=== PATIENT | male | born 1980 | race Caucasian/White ===

== ENCOUNTER 2018-02-14 14:20 | Emergency (ER) | payer MEDICAID, OTHER ==
[~2018-02-14] VITALS: Ht 180.3 cm; Wt 103.0 kg
[~2018-02-14 14:20] MED LIST: ALBU8.5H4 IH; CEPH500C5 PO; HYDR-3564 PO; HYDR-569 PO; IBUP-1984 PO
[2018-02-14 14:31] VITALS: BP 122/96
[2018-02-14] MEDS ORDERED: ketorolac trometh inj. 60 MG/2 ML VIAL IM ONE (14:50)
[2018-02-14] MEDS ORDERED: diazepam 5mg tablet PO ONE (14:50)
[2018-02-14] MEDS ORDERED: IBUP-1985 PO (15:19)
== END 2018-02-14 15:25 ==
LOC: EEVIPCON 14:20 → ER 14:20
DX: S80.01XA Contusion of right knee, initial encounter (principal); M54.5 Low back pain; F12.10 Cannabis abuse, uncomplicated; F14.10 Cocaine abuse, uncomplicated; F11.10 Opioid abuse, uncomplicated; Z86.14 Personal history of Methicillin resistant Staphylococcus aureus infection; Z98.890 Other specified postprocedural states; Z88.5 Allergy status to narcotic agent; Z79.899 Other long term (current) drug therapy; W18.39XA Other fall on same level, initial encounter; Y93.89 Activity, other specified; Y92.89 Other specified places as the place of occurrence of the external cause; Y99.8 Other external cause status
CPT/HCPCS: 29505; 72100; 73564; 96372; 99284; J1885

== ENCOUNTER 2019-06-22 05:11 | Inpatient (IN) | payer MEDICAID, OTHER ==
[~2019-06-22] VITALS: Ht 182.9 cm; Wt 100.0 kg
[~2019-06-22 05:11] MED LIST changes: -CEPH500C5 PO; -HYDR-3564 PO; +HYDR-3565 PO; +HYDR-4383 PO; -HYDR-569 PO; +IBUP-1985 PO
[2019-06-22] MEDS ORDERED: CLINDAMYCIN/D5W 900mg/50ml 50 ML IV ONE (05:35)
[2019-06-22 06:07] LABS: MEAN PLATELET VOLUME 8.5 FL (7.4-10.4)
[2019-06-22 06:10] LABS: BASOPHILS % (AUTO) 0.3 % (0-1); EOSINOPHILS # (AUTO) 0.1 X10'3 (0-0.9); EOSINOPHILS % (AUTO) 0.9 % (0-6); HEMATOCRIT 44.4 % (42.0-52.0); LYMPHOCYTES # (AUTO) 1.4 X10'3 (1.1-4.8); LYMPHOCYTES % (AUTO) 13.7 % (21-51); MEAN CORPUSCULAR HEMOGLOBIN 28.8 PG (27.0-31.0); MEAN CORPUSCULAR HGB CONC 33.7 g/dL (33.0-36.5); MEAN CORPUSCULAR VOLUME 85.3 FL (78-98); MONOCYTES # (AUTO) 0.7 X10'3 (0-0.9); MONOCYTES % (AUTO) 6.3 % (2-12); NEUTROPHILS # (AUTO) 8.3 X10'3 (1.8-7.7); NEUTROPHILS % (AUTO) 78.8 % (42-75); PLATELET COUNT 211 X10'3 (140-440); WHITE BLOOD COUNT 10.5 X10'3 (4.5-11.0)
[2019-06-22 06:32] LABS: ALANINE AMINOTRANSFERASE 23 U/L (12-78); ALBUMIN/GLOBULIN RATIO 1.1 (1.1-1.5); ALKALINE PHOSPHATASE 75 IU/L (46-116); ANION GAP 11 (8-16); ASPARTATE AMINO TRANSFERASE 10 U/L (10-37); BILIRUBIN,TOTAL 0.9 MG/DL (0.1-1.0); BLOOD UREA NITROGEN 22 MG/DL (7-18); BUN/CREATININE RATIO 15.2 (5.4-32.0); CALCIUM 8.8 MG/DL (8.5-10.1); CHLORIDE 104 MMOL/L (99-107); CREATININE 1.45 MG/DL (0.60-1.10); GLUCOSE 100 MG/DL (70-104); POTASSIUM 3.6 MMOL/L (3.5-5.1); SODIUM 141 MMOL/L (135-145); TOTAL CARBON DIOXIDE 26.1 MMOL/L (24-32); TOTAL PROTEIN 7.6 G/DL (6.4-8.2); eGFR 54 ML/MIN
[2019-06-22 06:58] LABS: PLATELET ESTIMATE NORMAL; TOTAL CELLS COUNTED 100
[2019-06-22] MEDS ORDERED: vancomycin/NS 1 GM ADD-VANTAGE 250 ML IV ONE (07:55)
[2019-06-22] MEDS ORDERED: normal saline 1000ML IV soln IV ONE (07:55)
[2019-06-22] MEDS ORDERED: LORazepam 1 MG tablet PO ONE (08:00)
[2019-06-22] MEDS ORDERED: levetiracetam 250mg tablet PO ONE (08:00)
[2019-06-22] MEDS: normal saline 1000ml 1,000 ML IV SCH ×2 (08:03→14:40)
[2019-06-22] MEDS ORDERED: potassium Cl 20 mEq SR tablet PO PRN ×2 (08:05)
[2019-06-22] MEDS ORDERED: acetaminophen 325mg tablet PO PRN (08:05)
[2019-06-22] MEDS ORDERED: potassium CL 10mEq/100ml bag 100 ML IV PRN ×2 (08:05)
[2019-06-22] MEDS ORDERED: magnesium Cl slow-release 64mg tablet PO PRN (08:05)
[2019-06-22] MEDS ORDERED: magnesium 2GM in 50ml NS 50 ML IV PRN (08:05)
[2019-06-22] MEDS ORDERED: ondansetron/PF 4mg/2ml inj IV PRN (08:05)
[2019-06-22] MEDS ORDERED: magnesium 4gm in 100ml NS 100 ML IV PRN (08:05)
[2019-06-22 08:25] LABS: ETHANOL < 0.010 GM/DL (0.0-0.010)
--- NOTE | 2019-06-22 10:00 | NUR ---
Patient on the unit. Photos taken of wounds.
[2019-06-22 10:23] VITALS: BP 144/92
[2019-06-22 12:21] VITALS: BP 133/90
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
[2019-06-22] MEDS ORDERED: DIVA500T2 PO (15:26)
--- NOTE | 2019-06-22 18:18 | NUR ---
Problems reprioritized. Patient report given, questions answered & plan of care reviewed with Joi RAMOS.
[2019-06-22 20:00] VITALS: BP 144/91
[2019-06-22] MEDS ORDERED: vancomycin/NS 1 GM ADD-VANTAGE 250 ML IV SCH (20:00)
[2019-06-22] MEDS: HYDROmorphone inj. 0.5 MG/0.5 ML DISP.SYRIN IV PRN (20:06)
[2019-06-22] MEDS: VANCOmycin 1250MG/NS 250ml Bag 250 ML IV SCH (20:06)
[2019-06-23] VITALS: BP 126/89
[2019-06-23] MEDS: normal saline 1000ml 1,000 ML IV SCH ×2 (03:11→13:31)
[2019-06-23] MEDS: HYDROmorphone inj. 0.5 MG/0.5 ML DISP.SYRIN IV PRN ×2 (03:11→18:55)
[2019-06-23 05:02] LABS: URINE AMPHETAMINE SCREEN POSITIVE (Neg); URINE BARBITUATE SCREEN NEGATIVE (Neg); URINE BENZODIAZEPINES SCREEN NEGATIVE (Neg); URINE CANNABINOID SCREEN POSITIVE (Neg); URINE COCAINE SCREEN NEGATIVE (Neg); URINE METHADONE SCREEN NEGATIVE (Neg); URINE OPIATE SCREEN NEGATIVE (Neg); URINE PHENCYCLIDINE SCREEN NEGATIVE (Neg)
[2019-06-23 05:14] LABS: ALBUMIN 2.9 G/DL (3.4-5.0); ANION GAP 7 (8-16); BLOOD UREA NITROGEN 20 MG/DL (7-18); BUN/CREATININE RATIO 19.6 (5.4-32.0); CALCIUM 8.4 MG/DL (8.5-10.1); CHLORIDE 109 MMOL/L (99-107); CREATININE 1.02 MG/DL (0.60-1.10); GLUCOSE 105 MG/DL (70-104); MAGNESIUM 1.9 MG/DL (1.5-2.4); SODIUM 142 MMOL/L (135-145); TOTAL CARBON DIOXIDE 25.7 MMOL/L (24-32); eGFR 81 ML/MIN
[2019-06-23 05:16] LABS: POTASSIUM 4.2 MMOL/L (3.5-5.1)
[2019-06-23 05:17] LABS: BASOPHILS % (AUTO) 0.4 % (0-1); EOSINOPHILS # (AUTO) 0.1 X10'3 (0-0.9); EOSINOPHILS % (AUTO) 1.6 % (0-6); HEMATOCRIT 40.3 % (42.0-52.0); HEMOGLOBIN 13.5 g/dl (14.0-17.9); LYMPHOCYTES # (AUTO) 1.2 X10'3 (1.1-4.8); LYMPHOCYTES % (AUTO) 19.5 % (21-51); MEAN CORPUSCULAR HEMOGLOBIN 28.9 PG (27.0-31.0); MEAN CORPUSCULAR HGB CONC 33.4 g/dL (33.0-36.5); MEAN CORPUSCULAR VOLUME 86.5 FL (78-98); MONOCYTES # (AUTO) 0.4 X10'3 (0-0.9); MONOCYTES % (AUTO) 7.2 % (2-12); NEUTROPHILS # (AUTO) 4.3 X10'3 (1.8-7.7); NEUTROPHILS % (AUTO) 71.3 % (42-75); PLATELET COUNT 167 X10'3 (140-440); RED BLOOD COUNT 4.67 X10'6 (4.70-6.10)
--- NOTE | 2019-06-23 06:11 | NUR ---
Patient in room EARLINE 341. I have received report from Joi RAMOS and had the opportunity to ask questions and assume patient care.
--- NOTE | 2019-06-23 06:17 | NUR ---
Problems reprioritized. Patient report given, questions answered & plan of care reviewed with RICHARD Snider.
[2019-06-23 08:00] VITALS: BP 138/86
[2019-06-23] MEDS: K and/or MAG REPLACEMENT MC SCH (08:07)
[2019-06-23] MEDS: VANCOmycin 1250MG/NS 250ml Bag 250 ML IV SCH ×2 (08:15→21:14)
--- NOTE | 2019-06-23 09:17 | NUR ---
Sent page to Dr. Hollins for [place] order for pain. Patient doesn't want to use Dilaudid anymore.
[2019-06-23] MEDS: HYDROcodone/acetaminophen 5mg/325mg tablet PO PRN ×2 (09:44→20:26)
[2019-06-23] MEDS ORDERED: pneumococcal 23-VAL P-sac vacc 25 mcg/0.5ml vial IMVAC ONE (10:00)
[2019-06-23 12:01] VITALS: BP 137/88
[2019-06-23 20:00] VITALS: BP 147/86
[2019-06-23] MEDS: lactobacillus rhamnosus 10,000 MMU CELLS/CAPSULE PO SCH (21:13)
[2019-06-23] MEDS: divalproex sodium 500mg tablet.DR PO SCH (21:14)
[2019-06-24] VITALS: BP 122/75
[2019-06-24] MEDS: normal saline 1000ml 1,000 ML IV SCH ×2 (04:46→10:03)
--- NOTE | 2019-06-24 06:22 | NUR ---
Problems reprioritized. Patient report given, questions answered & plan of care reviewed with RICHARD Snider.
[2019-06-24] MEDS: K and/or MAG REPLACEMENT MC SCH (08:00)
[2019-06-24] MEDS: VANCOmycin 1250MG/NS 250ml Bag 250 ML IV SCH (08:28)
[2019-06-24] MEDS: divalproex sodium 500mg tablet.DR PO SCH ×2 (08:29→21:06)
[2019-06-24] MEDS: lactobacillus rhamnosus 10,000 MMU CELLS/CAPSULE PO SCH ×2 (08:29→21:06)
[2019-06-24] MEDS: HYDROcodone/acetaminophen 5mg/325mg tablet PO PRN ×3 (08:29→21:11)
[2019-06-24] MEDS ORDERED: VANCOMYCIN LEVEL IV ONE (08:30)
[2019-06-24 08:57] VITALS: BP 121/74
[2019-06-24 08:57] LABS: BASOPHILS % (AUTO) 0.4 % (0-1); EOSINOPHILS # (AUTO) 0.1 X10'3 (0-0.9); HEMATOCRIT 42.7 % (42.0-52.0); HEMOGLOBIN 14.3 g/dl (14.0-17.9); LYMPHOCYTES # (AUTO) 1.1 X10'3 (1.1-4.8); LYMPHOCYTES % (AUTO) 18.3 % (21-51); MEAN CORPUSCULAR HEMOGLOBIN 28.4 PG (27.0-31.0); MEAN CORPUSCULAR HGB CONC 33.5 g/dL (33.0-36.5); MEAN CORPUSCULAR VOLUME 84.8 FL (78-98); MEAN PLATELET VOLUME 8.5 FL (7.4-10.4); MONOCYTES # (AUTO) 0.4 X10'3 (0-0.9); MONOCYTES % (AUTO) 6.7 % (2-12); NEUTROPHILS # (AUTO) 4.5 X10'3 (1.8-7.7); NEUTROPHILS % (AUTO) 72.6 % (42-75); PLATELET COUNT 175 X10'3 (140-440); RED BLOOD COUNT 5.04 X10'6 (4.70-6.10); RED CELL DISTRIBUTION WIDTH 13.7 % (11.5-14.5); WHITE BLOOD COUNT 6.2 X10'3 (4.5-11.0)
[2019-06-24 09:12] LABS: ALBUMIN 3.1 G/DL (3.4-5.0); ANION GAP 9 (8-16); BLOOD UREA NITROGEN 12 MG/DL (7-18); BUN/CREATININE RATIO 11.5 (5.4-32.0); CALCIUM 8.6 MG/DL (8.5-10.1); CHLORIDE 106 MMOL/L (99-107); CREATININE 1.04 MG/DL (0.60-1.10); GLUCOSE 84 MG/DL (70-104); POTASSIUM 4.4 MMOL/L (3.5-5.1); SODIUM 140 MMOL/L (135-145); TOTAL CARBON DIOXIDE 24.6 MMOL/L (24-32); VANCOMYCIN,TROUGH 8.8 UG/ML (6.0-14.0); eGFR 80 ML/MIN
[2019-06-24 11:28] VITALS: BP 131/86
--- NOTE | 2019-06-24 13:03 | NUR ---
WOUND INFECTION EDUCATION PROVIDED BY WOUND CARE 1. Patient instructed to call their primary doctor, or go the ED immediately if any of the following symptoms occur: * Increased pain in wound * Increase in drainage from the wound * Redness in the skin surrounding the wound * Warmth in the skin surrounding the wound * Bleeding from the wound * Temperature of 101 or greater 2. If any of these occur while in the hospital tell a nurse immediately. Addendum: 06/24/19 at 1303 by Franc Ang RN Amended: Links added.
[2019-06-24] MEDS ORDERED: VANCOmycin 1250MG/NS 250ml Bag 250 ML IV SCH (16:00)
[2019-06-24] MEDS: cephalexin 500mg capsule PO SCH (17:36)
--- NOTE | 2019-06-24 19:00 | NUR ---
IV infiltrated; patient refusing new IV. No IV medication orders. Patient PO intake good.
[2019-06-24 20:00] VITALS: BP 129/81
[2019-06-24] MEDS ORDERED: famotidine 20mg tablet PO SCH (21:00)
[2019-06-25 00:03] VITALS: BP 149/77
[2019-06-25] MEDS: cephalexin 500mg capsule PO SCH ×2 (00:38→07:20)
[2019-06-25 05:12] LABS: BASOPHILS % (AUTO) 0.5 % (0-1); EOSINOPHILS # (AUTO) 0.1 X10'3 (0-0.9); EOSINOPHILS % (AUTO) 2.7 % (0-6); HEMATOCRIT 45.1 % (42.0-52.0); HEMOGLOBIN 15.2 g/dl (14.0-17.9); LYMPHOCYTES # (AUTO) 1.8 X10'3 (1.1-4.8); LYMPHOCYTES % (AUTO) 32.5 % (21-51); MEAN CORPUSCULAR HEMOGLOBIN 28.6 PG (27.0-31.0); MEAN CORPUSCULAR HGB CONC 33.7 g/dL (33.0-36.5); MEAN CORPUSCULAR VOLUME 84.7 FL (78-98); MEAN PLATELET VOLUME 8.2 FL (7.4-10.4); MONOCYTES # (AUTO) 0.4 X10'3 (0-0.9); MONOCYTES % (AUTO) 7.8 % (2-12); NEUTROPHILS # (AUTO) 3.1 X10'3 (1.8-7.7); NEUTROPHILS % (AUTO) 56.5 % (42-75); PLATELET COUNT 191 X10'3 (140-440); RED BLOOD COUNT 5.33 X10'6 (4.70-6.10); RED CELL DISTRIBUTION WIDTH 13.9 % (11.5-14.5); WHITE BLOOD COUNT 5.4 X10'3 (4.5-11.0)
[2019-06-25 05:29] LABS: ALBUMIN 3.3 G/DL (3.4-5.0); ANION GAP 11 (8-16); BLOOD UREA NITROGEN 14 MG/DL (7-18); BUN/CREATININE RATIO 14.1 (5.4-32.0); CALCIUM 8.8 MG/DL (8.5-10.1); CHLORIDE 104 MMOL/L (99-107); CREATININE 0.99 MG/DL (0.60-1.10); GLUCOSE 90 MG/DL (70-104); POTASSIUM 4.2 MMOL/L (3.5-5.1); SODIUM 141 MMOL/L (135-145); TOTAL CARBON DIOXIDE 26.4 MMOL/L (24-32); eGFR 84 ML/MIN
--- NOTE | 2019-06-25 06:48 | NUR ---
Problems reprioritized. Patient report given, questions answered & plan of care reviewed with RICHARD Malone.
--- NOTE | 2019-06-25 06:54 | NUR ---
Patient in room EARLINE 351. I have received report from ANUSHA Costa RN and had the opportunity to ask questions and assume patient care.
[2019-06-25 07:00] VITALS: BP 120/82
[2019-06-25] MEDS: divalproex sodium 500mg tablet.DR PO SCH (07:20)
[2019-06-25] MEDS: HYDROcodone/acetaminophen 5mg/325mg tablet PO PRN ×2 (07:21→11:46)
[2019-06-25] MEDS: lactobacillus rhamnosus 10,000 MMU CELLS/CAPSULE PO SCH (07:21)
[2019-06-25] MEDS: K and/or MAG REPLACEMENT MC SCH (08:00)
[2019-06-25 11:00] VITALS: BP 124/82
[2019-06-25] MEDS ORDERED: LINE600T12 PO (13:15)
[2019-06-25] MEDS ORDERED: LACT1CAP26 PO (13:15)
[2019-06-25] MEDS ORDERED: FAMO20TA8 PO (13:15)
[2019-06-25] MEDS ORDERED: VANCOMYCIN LEVEL IV ONE (15:30)
--- NOTE | 2019-06-25 15:56 | NUR ---
patient appears to be stable for discharge. wound care done and patient instructed on self wound care. Also encouraged to call wound clinic . Number given, wound supplies provided. patient walked out of facility, refused cab or bus. this staff received a phone call from patients friend 'Mary Ann" who stated that she was here to mushroom picker patient, who had already been escorted to entrance of hospital. She stated that she would still mushroom picker patient . patient DC in stable condition.
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
== END 2019-06-25 15:55 | disposition home or self-care (01) | DRG 383 ==
LOC: ER 05:12 → SUR 3N 09:24 → CMPBEDREQ 06-23 19:57 → SUR 3N 06-24 13:53
PROVIDERS: ADMIT Internal Medicine; ATTEND Family Medicine
PROC: 3E0234Z Introduction of Serum, Toxoid and Vaccine into Muscle, Percutaneous Approach (ICD-10-PCS; principal; 2019-06-23)
DX: L03.115 Cellulitis of right lower limb (principal); G92 Toxic encephalopathy; S81.811A Laceration without foreign body, right lower leg, initial encounter; G40.909 Epilepsy, unspecified, not intractable, without status epilepticus; F17.200 Nicotine dependence, unspecified, uncomplicated; F11.90 Opioid use, unspecified, uncomplicated; F12.90 Cannabis use, unspecified, uncomplicated; Z60.2 Problems related to living alone; W45.8XXA Other foreign body or object entering through skin, initial encounter; Y93.01 Activity, walking, marching and hiking; B95.62 Methicillin resistant Staphylococcus aureus infection as the cause of diseases classified elsewhere; F14.90 Cocaine use, unspecified, uncomplicated; F41.9 Anxiety disorder, unspecified; Z59.0 Homelessness; Z87.820 Personal history of traumatic brain injury; Z91.14 Patient's other noncompliance with medication regimen; Z23 Encounter for immunization; Y92.828 Other wilderness area as the place of occurrence of the external cause; Y99.8 Other external cause status; Z88.5 Allergy status to narcotic agent; Z71.6 Tobacco abuse counseling; Z71.51 Drug abuse counseling and surveillance of drug abuser
CPT/HCPCS: 36415; 73590; 80048; 80053; 80202; 80305; 80320; 83605; 83735; 84145; 85025; 87040; 87070; 87075; 87077; 87081; 87186; 90732; 96365; 99285; G0378; J1170; J3370; J3490; J7030

== ENCOUNTER 2020-07-02 03:03 | Emergency (ER) | payer MEDICAID ==
[~2020-07-02] VITALS: Ht 182.9 cm; Wt 127.3 kg
[~2020-07-02 03:03] MED LIST changes: +DIVA500T2 PO; +FAMO20TA8 PO; -HYDR-3565 PO; -HYDR-4383 PO; -IBUP-1984 PO; +LACT1CAP26 PO
--- NOTE | 2020-07-02 03:06 | NUR ---
pt laced in chair in ambulance bay for triage and evaluation dr arellano notified.
[2020-07-02 04:20] LABS: CLARITY,URINE SLIGHTLY CLOUDY (Clear); COLOR,URINE YELLOW (Yellow); GLUCOSE, URINE NEGATIVE (Neg); KETONES,URINE NEGATIVE (Neg); LEUKOCYTE ESTERASE ,URINE NEGATIVE (Neg); NITRITES, URINE NEGATIVE (Neg); OCCULT BLOOD,URINE NEGATIVE (Neg); PROTEIN,URINE NEGATIVE (Neg); UA COLLECTION TYPE CLN CATCH MIDSTREAM; UROBILINOGEN,URINE 0.2 E.U/dL (0.2-1.0)
[2020-07-02 04:25] LABS: BACTERIA,URINE NONE SEEN /HPF (Neg); RBC,URINE NONE SEEN /HPF (0-2); WBC,URINE NONE SEEN /HPF (0-4)
[2020-07-02 04:26] LABS: CAL OXALATE CRYSTALS 3+ /HPF (NEGATIVE); MUCUS STRANDS FEW /LPF (Neg); SQUAMOUS EPITHELIAL CELL,UR FEW /LPF (FEW)
[2020-07-02] MEDS ORDERED: ibuprofen tablet 400 MG TABLET PO ONE (04:30)
[2020-07-02 04:48] VITALS: BP 135/96
== END 2020-07-02 04:52 | disposition home or self-care (01) ==
LOC: ER 03:03
DX: J06.9 Acute upper respiratory infection, unspecified (principal); M54.89 Other dorsalgia; R06.02 Shortness of breath; R05 Cough; Z20.828 Contact with and (suspected) exposure to other viral communicable diseases; F41.9 Anxiety disorder, unspecified; F17.200 Nicotine dependence, unspecified, uncomplicated; F12.90 Cannabis use, unspecified, uncomplicated; F15.90 Other stimulant use, unspecified, uncomplicated; F14.90 Cocaine use, unspecified, uncomplicated; F11.90 Opioid use, unspecified, uncomplicated; Z86.69 Personal history of other diseases of the nervous system and sense organs; Z86.14 Personal history of Methicillin resistant Staphylococcus aureus infection; Z72.89 Other problems related to lifestyle; Z98.890 Other specified postprocedural states; Z60.2 Problems related to living alone; Z59.0 Homelessness; Z88.5 Allergy status to narcotic agent; Z79.899 Other long term (current) drug therapy
CPT/HCPCS: 36415; 71045; 81001; 87635; 93005; 99285

== ENCOUNTER 2020-09-22 07:28 | Emergency (ER) | payer MEDICAID, OTHER ==
[~2020-09-22] VITALS: Ht 182.9 cm; Wt 127.3 kg
[2020-09-22] MEDS ORDERED: CEPH250T PO (09:03)
[2020-09-22] MEDS ORDERED: AMOX-422 PO (09:03)
[2020-09-22] MEDS ORDERED: ALBU8HFA PO (09:03)
[2020-09-22 09:37] VITALS: BP 159/106
== END 2020-09-22 09:39 | disposition home or self-care (01) ==
LOC: ER 07:28
DX: L03.115 Cellulitis of right lower limb (principal); J45.909 Unspecified asthma, uncomplicated; F41.9 Anxiety disorder, unspecified; F19.90 Other psychoactive substance use, unspecified, uncomplicated; F12.90 Cannabis use, unspecified, uncomplicated; F15.90 Other stimulant use, unspecified, uncomplicated; F14.90 Cocaine use, unspecified, uncomplicated; F11.90 Opioid use, unspecified, uncomplicated; Z86.69 Personal history of other diseases of the nervous system and sense organs; Z86.14 Personal history of Methicillin resistant Staphylococcus aureus infection; Z98.890 Other specified postprocedural states; Z60.2 Problems related to living alone; Z59.0 Homelessness; Z88.5 Allergy status to narcotic agent; Z79.2 Long term (current) use of antibiotics; Z79.899 Other long term (current) drug therapy
CPT/HCPCS: 99283

== ENCOUNTER 2022-04-13 13:23 | Inpatient (IN) | payer OTHER ==
[~2022-04-13] VITALS: Ht 182.9 cm; Wt 102.0 kg
[2022-04-13 14:18] LABS: BASOPHILS % (AUTO) 0.2 % (0-1); EOSINOPHILS % (AUTO) 0.2 % (0-6); HEMOGLOBIN 15.2 g/dl (14.0-17.9); LYMPHOCYTES # (AUTO) 0.9 X10'3 (1.1-4.8); LYMPHOCYTES % (AUTO) 8.7 % (21-51); MEAN CORPUSCULAR HEMOGLOBIN 27.7 PG (27.0-31.0); MEAN CORPUSCULAR HGB CONC 33.7 g/dL (33.0-36.5); MEAN CORPUSCULAR VOLUME 82.2 FL (78-98); MEAN PLATELET VOLUME 9.1 FL (7.4-10.4); MONOCYTES # (AUTO) 0.8 X10'3 (0-0.9); MONOCYTES % (AUTO) 7.8 % (2-12); NEUTROPHILS # (AUTO) 8.6 X10'3 (1.8-7.7); NEUTROPHILS % (AUTO) 83.1 % (42-75); PLATELET COUNT 252 X10'3 (140-440); RED BLOOD COUNT 5.47 X10'6 (4.70-6.10); RED CELL DISTRIBUTION WIDTH 13.7 % (11.5-14.5); WHITE BLOOD COUNT 10.3 X10'3 (4.5-11.0)
[2022-04-13 14:27] LABS: APTT 29 SECONDS (22-32)
[2022-04-13 14:29] LABS: ALANINE AMINOTRANSFERASE 29 U/L (12-78); ALBUMIN 4.1 G/DL (3.4-5.0); ALKALINE PHOSPHATASE 77 IU/L (46-116); ANION GAP 11 (8-16); ASPARTATE AMINO TRANSFERASE 19 U/L (10-37); BILIRUBIN,TOTAL 1.2 MG/DL (0.1-1.0); BLOOD UREA NITROGEN 16 MG/DL (7-18); BUN/CREATININE RATIO 15.4 (5.4-32.0); CALCIUM 9.1 MG/DL (8.5-10.1); CHLORIDE 102 MMOL/L (99-107); CREATININE 1.04 MG/DL (0.60-1.10); GLUCOSE 104 MG/DL (70-104); POTASSIUM 3.7 MMOL/L (3.5-5.1); SODIUM 140 MMOL/L (135-145); TOTAL PROTEIN 8.2 G/DL (6.4-8.2); eGFR 78 ML/MIN
[2022-04-13] MEDS ORDERED: penicillin V potassium 500mg tablet PO ONE (15:15)
[2022-04-13 16:33] LABS: URINE AMPHETAMINE SCREEN POSITIVE (Neg); URINE BARBITUATE SCREEN NEGATIVE (Neg); URINE BENZODIAZEPINES SCREEN NEGATIVE (Neg); URINE CANNABINOID SCREEN POSITIVE (Neg); URINE COCAINE SCREEN NEGATIVE (Neg); URINE METHADONE SCREEN NEGATIVE (Neg); URINE OPIATE SCREEN NEGATIVE (Neg); URINE PHENCYCLIDINE SCREEN NEGATIVE (Neg)
[2022-04-13] MEDS ORDERED: NO HOME MEDS (16:43)
[2022-04-13] MEDS ORDERED: HYDROcodone/acetaminophen 10/325mg tab PO ONE (17:25)
[2022-04-13] MEDS ORDERED: magnesium 2GM in 50ml NS 50 ML IV PRN (17:45)
[2022-04-13] MEDS ORDERED: magnesium Cl slow-release 64mg tablet PO PRN (17:45)
[2022-04-13] MEDS ORDERED: magnesium hydroxide 30ml (MOM) UD suspension PO PRN (17:45)
[2022-04-13] MEDS ORDERED: POTASSIUM BICARB 20meq eff tab 20 MEQ TABLET.EFF PO PRN ×2 (17:45)
[2022-04-13] MEDS ORDERED: acetaminophen 325mg tablet PO PRN (17:45)
[2022-04-13] MEDS ORDERED: ondansetron/PF 4mg/2ml inj IV PRN (17:45)
[2022-04-13] MEDS ORDERED: mag hydrox/Alum hydrox/simeth 30ml oral suspension PO PRN (17:45)
[2022-04-13] MEDS ORDERED: magnesium 4gm in 100ml NS 100 ML IV PRN (17:45)
[2022-04-13] MEDS ORDERED: potassium CL 10mEq/100ml bag 100 ML IV PRN (17:45)
[2022-04-13] MEDS ORDERED: normal saline 1000ml 1,000 ML IV SCH (17:45)
[2022-04-13 18:07] LABS: CHOL/HDL RATIO 3.9 (0.00-4.99); CHOLESTEROL 183 MG/DL (0-200); HDL CHOLESTEROL 47 MG/DL (35-60); LDL CHOLESTEROL 112 MG/DL (50-100); MAGNESIUM 2.1 MG/DL (1.5-2.4); TRIGLYCERIDES 60 MG/DL (20-135)
[2022-04-13] MEDS: ceFAZolin/D5W- 1GM premix 50 ML IV SCH (19:54)
[2022-04-13] MEDS: K and/or MAG REPLACEMENT MC SCH (20:10)
[2022-04-13] MEDS: heparin, porcine 5000 units/ml vial SQ SCH (20:25)
[2022-04-13] MEDS: docusate sod 100mg capsule PO SCH (20:28)
--- NOTE | 2022-04-13 22:05 | NUR ---
Pt arrived from ER via gurney to room 4021a, pt appeared drowsy but able to transfer self to bed without assist. Patients clothing very dirty as well as pt.
[2022-04-13 22:15] VITALS: BP 162/98
[2022-04-14] MEDS: HYDROcodone/acetaminophen 10/325mg tab PO PRN ×2 (02:22→08:22)
[2022-04-14 02:33] VITALS: BP 145/92
[2022-04-14 06:47] LABS: BASOPHILS % (AUTO) 0.2 % (0-1); EOSINOPHILS % (AUTO) 0.1 % (0-6); HEMATOCRIT 43.5 % (42.0-52.0); HEMOGLOBIN 14.6 g/dl (14.0-17.9); LYMPHOCYTES # (AUTO) 0.9 X10'3 (1.1-4.8); LYMPHOCYTES % (AUTO) 12.3 % (21-51); MEAN CORPUSCULAR HEMOGLOBIN 27.9 PG (27.0-31.0); MEAN CORPUSCULAR HGB CONC 33.6 g/dL (33.0-36.5); MEAN CORPUSCULAR VOLUME 82.9 FL (78-98); MEAN PLATELET VOLUME 8.7 FL (7.4-10.4); MONOCYTES # (AUTO) 0.7 X10'3 (0-0.9); MONOCYTES % (AUTO) 10.1 % (2-12); NEUTROPHILS # (AUTO) 5.6 X10'3 (1.8-7.7); NEUTROPHILS % (AUTO) 77.3 % (42-75); PLATELET COUNT 209 X10'3 (140-440); RED BLOOD COUNT 5.25 X10'6 (4.70-6.10); RED CELL DISTRIBUTION WIDTH 14.1 % (11.5-14.5); WHITE BLOOD COUNT 7.2 X10'3 (4.5-11.0)
--- NOTE | 2022-04-14 06:57 | NUR ---
Report to Licha RAMOS.
--- NOTE | 2022-04-14 07:01 | NUR ---
Patient in room ORTHO 4021. I have received report from RICHARD Redmond and had the opportunity to ask questions and assume patient care.
[2022-04-14 07:02] LABS: ALBUMIN 3.5 G/DL (3.4-5.0); ANION GAP 13 (8-16); BLOOD UREA NITROGEN 11 MG/DL (7-18); CALCIUM 8.6 MG/DL (8.5-10.1); CHLORIDE 104 MMOL/L (99-107); CREATININE 0.92 MG/DL (0.60-1.10); GLUCOSE 110 MG/DL (70-104); MAGNESIUM 2.1 MG/DL (1.5-2.4); POTASSIUM 3.6 MMOL/L (3.5-5.1); SODIUM 142 MMOL/L (135-145); eGFR 90 ML/MIN
[2022-04-14] MEDS ORDERED: atorvastatin 10mg tablet PO SCH (08:00)
[2022-04-14] MEDS: K and/or MAG REPLACEMENT MC SCH (08:00)
[2022-04-14] MEDS ORDERED: aspirin 81mg, enteric-coated 1 TAB TABLET.DR PO SCH (08:00)
[2022-04-14] MEDS: docusate sod 100mg capsule PO SCH (08:00)
[2022-04-14] MEDS: heparin, porcine 5000 units/ml vial SQ SCH (08:22)
[2022-04-14] MEDS: ceFAZolin/D5W- 1GM premix 50 ML IV SCH (08:22)
[2022-04-14 10:00] VITALS: BP 148/92
--- NOTE | 2022-04-14 10:48 | NUR ---
Patient decided to leave AMA. Educated on risks of leaving AMA but he states "I have to leave now".
--- NOTE | 2022-04-14 10:53 | NUR ---
PAGER ID: [phone] MESSAGE: [phone] RE: Freeman Lewis room 4021A left AMA. Patient stated he had to go now couldn't wait
--- NOTE | 2022-04-14 11:19 | NUR ---
Patient left AMA at 1045. PIV with intact cannula and tele monitor were removed. Patient states he is going [place] the [place] to try to find fentanyl.
== END 2022-04-14 10:45 | disposition left against medical advice (07) | DRG 65 ==
LOC: ER 13:23 → ED HOLD 17:48 → ORTHO 4S 22:05
PROVIDERS: ADMIT Family Medicine; ATTEND Family Medicine
DX: I63.9 Cerebral infarction, unspecified (principal); L03.211 Cellulitis of face; F15.10 Other stimulant abuse, uncomplicated; F17.210 Nicotine dependence, cigarettes, uncomplicated; Z60.2 Problems related to living alone; I48.91 Unspecified atrial fibrillation; R29.702 NIHSS score 2; K04.7 Periapical abscess without sinus; Z53.29 Procedure and treatment not carried out because of patient's decision for other reasons; F12.90 Cannabis use, unspecified, uncomplicated; F14.90 Cocaine use, unspecified, uncomplicated; F41.9 Anxiety disorder, unspecified; Z59.00 Homelessness unspecified; Z88.5 Allergy status to narcotic agent; Z79.82 Long term (current) use of aspirin; Z71.51 Drug abuse counseling and surveillance of drug abuser; Z71.6 Tobacco abuse counseling
CPT/HCPCS: 36415; 70450; 71045; 80048; 80053; 80061; 80305; 83735; 84484; 85025; 85610; 85730; 87081; 92508; 92616; 93306; 93880; 97116; 97161; 97530; 99285; G0378; J0690; J1644; J7030

== ENCOUNTER 2024-03-09 13:23 | Emergency (ER) | payer MEDICAID ==
[~2024-03-09] VITALS: Ht 182.9 cm; Wt 115.0 kg
[~2024-03-09 13:23] MED LIST changes: -ALBU8.5H4 IH; -DIVA500T2 PO; -FAMO20TA8 PO; -IBUP-1985 PO; -LACT1CAP26 PO; +NO HOME MEDS
[2024-03-09 13:47] VITALS: BP 124/89; PULSE 95; RESP 16; TEMP 97.1; O2SAT 98
[2024-03-09 15:23] LABS: APTT 27 SECONDS (22-32); BASOPHILS % (AUTO) 0.3 % (0-1); EOSINOPHILS % (AUTO) 0.6 % (0-6); HEMATOCRIT 43.2 % (42.0-52.0); HEMOGLOBIN 14.9 g/dl (14.0-17.9); LYMPHOCYTES % (AUTO) 17.7 % (21-51); MEAN CORPUSCULAR HEMOGLOBIN 28.3 PG (27.0-31.0); MEAN CORPUSCULAR HGB CONC 34.4 g/dL (33.0-36.5); MEAN CORPUSCULAR VOLUME 82.1 FL (78-98); MONOCYTES # (AUTO) 0.8 X10'3 (0-0.9); MONOCYTES % (AUTO) 13.6 % (2-12); NEUTROPHILS # (AUTO) 3.8 X10'3 (1.8-7.7); NEUTROPHILS % (AUTO) 67.8 % (42-75); PLATELET COUNT 198 X10'3 (140-440); PROTHROMBIN TIME 10.9 SECONDS (9.0-12.0); RED BLOOD COUNT 5.26 X10'6 (4.70-6.10); RED CELL DISTRIBUTION WIDTH 15.2 % (11.5-14.5); WHITE BLOOD COUNT 5.5 X10'3 (4.5-11.0)
[2024-03-09 15:35] LABS: ALANINE AMINOTRANSFERASE 25 U/L (12-78); ALBUMIN 2.9 G/DL (3.4-5.0); ALBUMIN/GLOBULIN RATIO 0.8 (1.1-1.5); ALKALINE PHOSPHATASE 55 IU/L (46-116); ANION GAP 8 (8-16); ASPARTATE AMINO TRANSFERASE 36 U/L (10-37); BILIRUBIN,TOTAL 0.6 MG/DL (0.1-1.0); BLOOD UREA NITROGEN 26 MG/DL (7-18); BUN/CREATININE RATIO 18.8 (10.0-20.0); C-REACTIVE PROTEIN 14.52 MG/DL (0.0-0.5); CALCIUM 8.6 MG/DL (8.5-10.1); CHLORIDE 95 MMOL/L (99-107); CREATININE 1.38 MG/DL (0.60-1.10); GLUCOSE 85 MG/DL (70-104); SODIUM 131 MMOL/L (135-145); TOTAL CARBON DIOXIDE 28.2 MMOL/L (24-32); TOTAL PROTEIN 6.7 G/DL (6.4-8.2); eCRCL 75 ML/MIN; eGFR 56 ML/MIN
[2024-03-09 15:38] LABS: POTASSIUM 2.9 MMOL/L (3.5-5.1)
[2024-03-10] MEDS ORDERED: METH-603 PO (10:28)
== END 2024-03-09 19:13 | disposition left against medical advice (07) ==
LOC: ER 13:24
DX: S80.211A Abrasion, right knee, initial encounter (principal); R19.7 Diarrhea, unspecified; X58.XXXA Exposure to other specified factors, initial encounter; Y93.89 Activity, other specified; Y92.89 Other specified places as the place of occurrence of the external cause; Y99.8 Other external cause status; Z53.21 Procedure and treatment not carried out due to patient leaving prior to being seen by health care provider
CPT/HCPCS: 36415; 80053; 83605; 84145; 85025; 85610; 85651; 85730; 86140; 87040; 93005

== ENCOUNTER 2024-03-09 22:33 | Inpatient (IN) | payer MEDICAID ==
[~2024-03-09] VITALS: Ht 182.9 cm; Wt 96.0 kg
[2024-03-10] MEDS: TETanus/Pertussis (Acell)/Diphther VAC/PF (Tdap-Adult) 0.5ml syringe IMVAC ONE (08:29)
[2024-03-10 08:36] LABS: BASOPHILS % (AUTO) 0.1 % (0-1); EOSINOPHILS % (AUTO) 0.4 % (0-6); HEMATOCRIT 43.2 % (42.0-52.0); HEMOGLOBIN 14.4 g/dl (14.0-17.9); LYMPHOCYTES % (AUTO) 17.7 % (21-51); MEAN CORPUSCULAR HEMOGLOBIN 27.9 PG (27.0-31.0); MEAN CORPUSCULAR HGB CONC 33.5 g/dL (33.0-36.5); MEAN CORPUSCULAR VOLUME 83.3 FL (78-98); MEAN PLATELET VOLUME 8.5 FL (7.4-10.4); MONOCYTES # (AUTO) 0.6 X10'3 (0-0.9); MONOCYTES % (AUTO) 10.9 % (2-12); NEUTROPHILS # (AUTO) 4.1 X10'3 (1.8-7.7); NEUTROPHILS % (AUTO) 70.9 % (42-75); PLATELET COUNT 205 X10'3 (140-440); RED BLOOD COUNT 5.18 X10'6 (4.70-6.10); RED CELL DISTRIBUTION WIDTH 15.2 % (11.5-14.5); WHITE BLOOD COUNT 5.8 X10'3 (4.5-11.0)
[2024-03-10 08:47] LABS: ALBUMIN 2.9 G/DL (3.4-5.0); ANION GAP 7 (8-16); BLOOD UREA NITROGEN 23 MG/DL (7-18); BUN/CREATININE RATIO 18.1 (10.0-20.0); CALCIUM 8.5 MG/DL (8.5-10.1); CHLORIDE 99 MMOL/L (99-107); CREATININE 1.27 MG/DL (0.60-1.10); ETHANOL < 10 MG/DL (<10); GLUCOSE 103 MG/DL (70-104); SODIUM 136 MMOL/L (135-145); eCRCL 81 ML/MIN; eGFR 62 ML/MIN
[2024-03-10 08:51] LABS: POTASSIUM 2.9 MMOL/L (3.5-5.1)
[2024-03-10 09:02] LABS: URINE AMPHETAMINE SCREEN POSITIVE (Neg); URINE BARBITUATE SCREEN NEGATIVE (Neg); URINE BENZODIAZEPINES SCREEN NEGATIVE (Neg); URINE CANNABINOID SCREEN POSITIVE (Neg); URINE COCAINE SCREEN NEGATIVE (Neg); URINE METHADONE SCREEN POSITIVE (Neg); URINE OPIATE SCREEN NEGATIVE (Neg); URINE PHENCYCLIDINE SCREEN NEGATIVE (Neg)
[2024-03-10] MEDS ORDERED: METH-603 PO (10:28)
[2024-03-10] MEDS ORDERED: potassium Cl 20 mEq SR tablet PO PRN (10:30)
[2024-03-10] MEDS ORDERED: potassium Cl 40MEQ/1/2NS 520ml 520 ML IV PRN (10:30)
[2024-03-10] MEDS ORDERED: magnesium 2GM in 50ml NS 50 ML IV PRN (10:30)
[2024-03-10] MEDS: PERFLUTREN PROTEIN-A MICROSPHR (Optison) 0.22 MG/ML 3ML VIAL IV ONE (10:30)
[2024-03-10] MEDS ORDERED: magnesium 4gm in 100ml NS 100 ML IV PRN (10:30)
[2024-03-10] MEDS: atorvastatin 20mg tablet PO SCH (12:33)
[2024-03-10] MEDS: potassium Cl 20 mEq SR tablet PO ONE (12:33)
[2024-03-10] MEDS: normal saline 1000ml 1,000 ML IV SCH (12:33)
[2024-03-10] MEDS: clopidogrel 300mg tablet PO ONE (12:34)
[2024-03-10] MEDS: aspirin 325mg tablet, delayed-release (Ecotrin) PO ONE (12:34)
[2024-03-10] MEDS: potassium Cl 40MEQ/1/2NS 520ml 520 ML IV SCH (12:34)
[2024-03-10 17:00] VITALS: BP 127/86; PULSE 78; RESP 16; TEMP 98.4; O2SAT 96
[2024-03-10 17:06] VITALS: RESP 18; O2SAT 96
[2024-03-10] MEDS: ondansetron/PF 4mg/2ml inj IV PRN (18:53)
[2024-03-10 20:00] VITALS: BP 127/86; PULSE 78; RESP 16; TEMP 98.4; O2SAT 96
[2024-03-10] MEDS: K and/or MAG REPLACEMENT MC SCH (20:00)
[2024-03-10] MEDS: methadone 10mg tablet PO SCH (20:01)
[2024-03-11] VITALS (9 sets, daily range): BP systolic 128–142; BP diastolic 83–92; PULSE 66–90; RESP 14–19; TEMP 96.9–98.3; O2SAT 96–98
[2024-03-11 07:48] LABS: BASOPHILS % (AUTO) 0.1 % (0-1); EOSINOPHILS # (AUTO) 0.1 X10'3 (0-0.9); HEMATOCRIT 37.9 % (42.0-52.0); HEMOGLOBIN 13.1 g/dl (14.0-17.9); LYMPHOCYTES # (AUTO) 1.2 X10'3 (1.1-4.8); LYMPHOCYTES % (AUTO) 26.6 % (21-51); MEAN CORPUSCULAR HEMOGLOBIN 28.7 PG (27.0-31.0); MEAN CORPUSCULAR HGB CONC 34.6 g/dL (33.0-36.5); MEAN CORPUSCULAR VOLUME 83.1 FL (78-98); MONOCYTES # (AUTO) 0.4 X10'3 (0-0.9); MONOCYTES % (AUTO) 9.4 % (2-12); NEUTROPHILS # (AUTO) 2.8 X10'3 (1.8-7.7); NEUTROPHILS % (AUTO) 61.9 % (42-75); PLATELET COUNT 186 X10'3 (140-440); RED BLOOD COUNT 4.56 X10'6 (4.70-6.10); RED CELL DISTRIBUTION WIDTH 15.2 % (11.5-14.5); WHITE BLOOD COUNT 4.5 X10'3 (4.5-11.0)
[2024-03-11] MEDS: aspirin 81mg, enteric-coated 1 TAB TABLET.DR PO SCH (07:50)
[2024-03-11] MEDS: clopidogrel 75mg tablet PO SCH (07:50)
[2024-03-11 08:24] LABS: ALANINE AMINOTRANSFERASE 18 U/L (12-78); ALBUMIN 2.4 G/DL (3.4-5.0); ALBUMIN/GLOBULIN RATIO 0.8 (1.1-1.5); ALKALINE PHOSPHATASE 43 IU/L (46-116); ANION GAP 4 (8-16); ASPARTATE AMINO TRANSFERASE 13 U/L (10-37); BILIRUBIN,TOTAL 0.4 MG/DL (0.1-1.0); BLOOD UREA NITROGEN 11 MG/DL (7-18); BUN/CREATININE RATIO 11.3 (10.0-20.0); CALCIUM 7.8 MG/DL (8.5-10.1); CHLORIDE 107 MMOL/L (99-107); CHOL/HDL RATIO 5.2 (0.00-4.99); CHOLESTEROL 134 MG/DL (0-200); CREATININE 0.97 MG/DL (0.60-1.10); GLUCOSE 81 MG/DL (70-104); HDL CHOLESTEROL 26 MG/DL (35-60); LDL CHOLESTEROL 88 MG/DL (50-100); MAGNESIUM 1.9 MG/DL (1.5-2.4); POTASSIUM 3.4 MMOL/L (3.5-5.1); SODIUM 140 MMOL/L (135-145); TOTAL CARBON DIOXIDE 29.2 MMOL/L (24-32); TOTAL PROTEIN 5.6 G/DL (6.4-8.2); TRIGLYCERIDES 109 MG/DL (20-135); eCRCL 107 ML/MIN; eGFR 84 ML/MIN
[2024-03-11 16:53] LABS: BILIRUBIN,URINE NEGATIVE (Neg); CLARITY,URINE CLEAR (Clear); COLOR,URINE YELLOW (Yellow); GLUCOSE, URINE NEGATIVE (Neg); KETONES,URINE NEGATIVE (Neg); LEUKOCYTE ESTERASE ,URINE NEGATIVE (Neg); NITRITES, URINE NEGATIVE (Neg); OCCULT BLOOD,URINE NEGATIVE (Neg); PROTEIN,URINE NEGATIVE (Neg); UROBILINOGEN,URINE 0.2 E.U/dL (0.2-1.0)
[2024-03-11 16:58] LABS: UA COLLECTION TYPE VOIDED
[2024-03-11] MEDS: potassium Cl 20 mEq SR tablet PO PRN (16:59)
[2024-03-12] VITALS: BP 138/84
[2024-03-12 04:04] VITALS: BP 134/80
[2024-03-12 06:00] VITALS: BP 157/92; PULSE 77; RESP 19; TEMP 98.5; O2SAT 99
[2024-03-12] MEDS: atorvastatin 20mg tablet PO SCH (07:06)
[2024-03-12 07:09] LABS: BASOPHILS % (AUTO) 0.3 % (0-1); EOSINOPHILS # (AUTO) 0.2 X10'3 (0-0.9); EOSINOPHILS % (AUTO) 2.7 % (0-6); HEMATOCRIT 40.5 % (42.0-52.0); HEMOGLOBIN 13.7 g/dl (14.0-17.9); LYMPHOCYTES # (AUTO) 1.6 X10'3 (1.1-4.8); LYMPHOCYTES % (AUTO) 22.8 % (21-51); MEAN CORPUSCULAR HGB CONC 33.7 g/dL (33.0-36.5); MEAN CORPUSCULAR VOLUME 82.9 FL (78-98); MEAN PLATELET VOLUME 7.6 FL (7.4-10.4); MONOCYTES # (AUTO) 0.6 X10'3 (0-0.9); MONOCYTES % (AUTO) 9.3 % (2-12); NEUTROPHILS # (AUTO) 4.4 X10'3 (1.8-7.7); NEUTROPHILS % (AUTO) 64.9 % (42-75); PLATELET COUNT 206 X10'3 (140-440); RED BLOOD COUNT 4.88 X10'6 (4.70-6.10); RED CELL DISTRIBUTION WIDTH 15.2 % (11.5-14.5); WHITE BLOOD COUNT 6.8 X10'3 (4.5-11.0)
[2024-03-12 07:50] LABS: ALANINE AMINOTRANSFERASE 18 U/L (12-78); ALBUMIN 2.8 G/DL (3.4-5.0); ALBUMIN/GLOBULIN RATIO 0.8 (1.1-1.5); ALKALINE PHOSPHATASE 47 IU/L (46-116); ANION GAP 8 (8-16); ASPARTATE AMINO TRANSFERASE 18 U/L (10-37); BILIRUBIN,TOTAL 0.3 MG/DL (0.1-1.0); BLOOD UREA NITROGEN 12 MG/DL (7-18); BUN/CREATININE RATIO 13.8 (10.0-20.0); CALCIUM 8.8 MG/DL (8.5-10.1); CHLORIDE 103 MMOL/L (99-107); CREATININE 0.87 MG/DL (0.60-1.10); GLUCOSE 78 MG/DL (70-104); MAGNESIUM 1.9 MG/DL (1.5-2.4); POTASSIUM 3.7 MMOL/L (3.5-5.1); SODIUM 138 MMOL/L (135-145); TOTAL CARBON DIOXIDE 26.8 MMOL/L (24-32); TOTAL PROTEIN 6.3 G/DL (6.4-8.2); eCRCL 119 ML/MIN; eGFR > 90 ML/MIN
[2024-03-12 08:00] VITALS: BP 157/92; PULSE 77; RESP 19; TEMP 98.5; O2SAT 99
[2024-03-12 08:30] LABS: PLATELET ESTIMATE NORMAL; SMUDGE CELLS FEW; TOTAL CELLS COUNTED 100
[2024-03-12 12:00] VITALS: BP 158/87; PULSE 68; RESP 16; TEMP 97.1; O2SAT 97
[2024-03-12 16:00] VITALS: BP 147/79; PULSE 70; RESP 18; TEMP 97.3; O2SAT 96
[2024-03-12] MEDS ORDERED: ASPI-1265 PO (16:36)
[2024-03-12] MEDS ORDERED: ATOR20TA66 PO (16:36)
[2024-03-12] MEDS: methadone 10mg tablet PO SCH (17:48)
== END 2024-03-12 18:09 | disposition home or self-care (01) | DRG 47 ==
LOC: ER 22:34 → ED HOLD 03-10 10:36 → ORTHO 4S 03-10 16:41
PROVIDERS: ADMIT Family Medicine; ATTEND Family Medicine
DX: G45.9 Transient cerebral ischemic attack, unspecified (principal); N17.9 Acute kidney failure, unspecified; E87.6 Hypokalemia; F41.9 Anxiety disorder, unspecified; G40.909 Epilepsy, unspecified, not intractable, without status epilepticus; F17.210 Nicotine dependence, cigarettes, uncomplicated; F11.20 Opioid dependence, uncomplicated; Z66 Do not resuscitate; M79.606 Pain in leg, unspecified; F15.10 Other stimulant abuse, uncomplicated; F12.10 Cannabis abuse, uncomplicated; Z86.73 Personal history of transient ischemic attack (TIA), and cerebral infarction without residual deficits; Z88.5 Allergy status to narcotic agent; Z59.00 Homelessness unspecified
CPT/HCPCS: 36415; 70450; 70544; 70551; 80048; 80053; 80061; 80305; 80320; 81003; 83036; 83735; 85007; 85025; 87081; 90471; 90715; 92508; 92616; 93306; 93880; 97116; 97162; 97530; 99285; A6250; G0378; J2405; J3480; J7030

== ENCOUNTER 2025-06-19 12:01 | Emergency (ER) | payer MEDICAID ==
[~2025-06-19] VITALS: Ht 182.9 cm; Wt 108.0 kg
[~2025-06-19 12:01] MED LIST changes: +ATOR20TA66 PO; +METH-603 PO; -NO HOME MEDS
[2025-06-19 12:13] VITALS: TEMP 98.6
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
[2025-06-19] MEDS: ibuprofen tablet 400 MG TABLET PO ONE (13:12)
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
--- NOTE | 2025-06-19 14:25 | RADIOLOGY REPORT ---
EXAM: CT CT CERVICAL SPINE INDICATION: neck pain EXAM DATE: 06/19/2025 12:32 PM COMPARISON: CT CT HEAD on DOS: 06/19/25, MR MRI HEAD on DOS: 03/10/24, MR MRA HEAD on DOS: 03/10/24, VAS C VL CAROTID on DOS: 03/10/24, CT CT HEAD on DOS: 03/10/24 TECHNIQUE: Noncontrast axial CT images of the cervical spine were performed. Sagittal and coronal ref ormatted images were obtained. Radiation optimization: All CT scans at this facility use at least one of these dose optimization techniques: automated exposure control mA and/or kV adjustment per patie nt size (includes targeted exams where dose is matched to clinical indication) or iterative reconstr uction. Radiation Dose Information: CT Dose: CTDI volume is 24.54 mGy. Dose-length product is 561.31 mGy*cm FINDINGS: No fracture or listhesis of the cervical spine. There is mild reversal of normal cervical lordosis. T here is advanced cervical degenerative disc disease and facet arthropathy. There is moderate spinal canal stenosis at C4-C5, C5-C6, and C6-C7; [id number]-jc-[id number] spinal canal stenosis at C3-C4. There is significant neural foraminal stenosis at C2-C3 on the right, C3-C4 on the right, C4-C5 bilaterally, C 5-C6 bilaterally, C6-C7 bilaterally. There are multiple mildly prominent lymph nodes in the bilateral jugular chains and bilateral submandibular regions. There is mucosal thickening of the bilateral max illary sinuses. There are multiple dental caries, although the teeth are not fully imaged here. There is dunlap tonsillar hypertrophy without significant airway narrowing. There is an old right clavicular fracture. IMPRESSION: 1. No fracture of the cervical spine. 2. Advanced cervical degenerative disc disease and facet arthropathy with multilevel significant neur al foraminal stenosis as detailed above. These findings May correspond to upper extremity radicular symptoms in the right C3, right C4, bilateral C5, bilateral C6, and bilateral C7 nerve root distribut ions. 3. Moderate spinal canal stenosis at C4-C5, C5-C6, and C6-C7. Consider follow-up noncontrast MRI of t he cervical spine on an outpatient nonemergent basis as there is likely mass effect on the cervical s latoya cord at multiple levels. 4. Reversal of normal cervical lordosis may be chronic for the patient or due to muscle spasm. 5. Bilateral maxillary sinus disease. The paranasal sinuses are not fully imaged here. 6. Dunlap tonsillar hypertrophy without significant airway narrowing. 7. Multiple dental caries. The teeth are not fully imaged here. Recommend outpatient dental consult ation.
[2025-06-19 14:56] VITALS: BP 154/102; PULSE 82; RESP 16; O2SAT 99
== END 2025-06-19 15:02 | disposition home or self-care (01) ==
LOC: ER 12:02
DX: S13.4XXA Sprain of ligaments of cervical spine, initial encounter (principal); F15.90 Other stimulant use, unspecified, uncomplicated; F14.90 Cocaine use, unspecified, uncomplicated; F12.90 Cannabis use, unspecified, uncomplicated; F41.9 Anxiety disorder, unspecified; Z86.73 Personal history of transient ischemic attack (TIA), and cerebral infarction without residual deficits; Z59.00 Homelessness unspecified; Z88.5 Allergy status to narcotic agent; Z79.899 Other long term (current) drug therapy; Z60.2 Problems related to living alone; V89.2XXA Person injured in unspecified motor-vehicle accident, traffic, initial encounter; Y93.89 Activity, other specified; Y92.481 Parking lot as the place of occurrence of the external cause; Y99.8 Other external cause status
CPT/HCPCS: 70450; 72125; 99284